=== PATIENT | male | born 1990 | race Caucasian/White ===

== ENCOUNTER 2017-04-16 10:10 | Emergency (ER) | payer OTHER, MEDICAID ==
[~2017-04-16] VITALS: Ht 182.9 cm; Wt 119.0 kg
[~2017-04-16 10:10] MED LIST: CEPH500C5 PO; CLIN-12 PO; CLIN-79 PO; GENT5DRO4 EACHEYE; HYDR-3965 PO; IBUP-1986 PO; NAPR-1154 PO; ONDA4TAB9 PO
[2017-04-16 10:12] VITALS: BP 123/72
== END 2017-04-16 10:38 | disposition home or self-care (01) ==
LOC: ER 10:10
DX: L73.9 Follicular disorder, unspecified (principal); Z86.14 Personal history of Methicillin resistant Staphylococcus aureus infection; Z98.890 Other specified postprocedural states
CPT/HCPCS: 99281

== ENCOUNTER 2017-04-22 17:02 | Emergency (ER) | payer OTHER, MEDICAID ==
[~2017-04-22] VITALS: Ht 185.4 cm; Wt 120.5 kg
[2017-04-22 17:30] VITALS: BP 138/98
== END 2017-04-22 17:31 | disposition home or self-care (01) ==
LOC: ER 17:02
DX: S61.512D Laceration without foreign body of left wrist, subsequent encounter (principal); W26.0XXD Contact with knife, subsequent encounter; Z98.890 Other specified postprocedural states; Z79.899 Other long term (current) drug therapy
CPT/HCPCS: 99281

== ENCOUNTER 2017-08-17 19:56 | Emergency (ER) | payer MEDICAID, OTHER ==
[~2017-08-17] VITALS: Ht 185.4 cm; Wt 123.0 kg
[~2017-08-17 19:56] MED LIST changes: -HYDR-3965 PO; -ONDA4TAB9 PO
[2017-08-17 20:15] VITALS: BP 137/82
[2017-08-17] MEDS ORDERED: ibuprofen tablet 400 MG TABLET PO ONE (21:25)
[2017-08-17] MEDS ORDERED: acetaminophen 325mg tablet PO ONE (21:25)
[2017-08-17] MEDS ORDERED: BUPIVAcaine/PF 2.5 mg/ml (0.25%) 30ml vial IJ ONE (21:25)
[2017-08-17] MEDS ORDERED: SULF1TAB49 PO (22:32)
== END 2017-08-17 22:48 | disposition home or self-care (01) ==
LOC: ER 19:57
DX: L02.412 Cutaneous abscess of left axilla (principal); Z86.14 Personal history of Methicillin resistant Staphylococcus aureus infection; Z98.890 Other specified postprocedural states
CPT/HCPCS: 10060; 99283; A6449; J3490

== ENCOUNTER 2017-08-18 22:21 | Emergency (ER) | payer MEDICAID ==
[~2017-08-18] VITALS: Ht 185.4 cm; Wt 124.0 kg
[~2017-08-18 22:21] MED LIST changes: +SULF1TAB49 PO
[2017-08-19] MEDS ORDERED: dexamethasone sod phosphate 10mg/ml inj IM STA (00:14)
[2017-08-19] MEDS ORDERED: ketorolac trometh inj. 60 MG/2 ML VIAL IM ONE (00:15)
[2017-08-19] MEDS ORDERED: PRED20TA PO (00:28)
[2017-08-19] MEDS ORDERED: ONDA4TAB12 PO (00:28)
[2017-08-19 01:14] VITALS: BP 111/75
== END 2017-08-19 01:20 | disposition home or self-care (01) ==
LOC: ER 22:22
DX: T36.95XA Adverse effect of unspecified systemic antibiotic, initial encounter (principal); F17.210 Nicotine dependence, cigarettes, uncomplicated; Z86.14 Personal history of Methicillin resistant Staphylococcus aureus infection; Z98.890 Other specified postprocedural states; Z88.2 Allergy status to sulfonamides; Z88.8 Allergy status to other drugs, medicaments and biological substances; Z79.899 Other long term (current) drug therapy; Y92.89 Other specified places as the place of occurrence of the external cause
CPT/HCPCS: 96372; 99284; J1100; J1885

== ENCOUNTER 2017-12-09 17:10 | Emergency (ER) | payer MEDICAID ==
[~2017-12-09] VITALS: Ht 177.8 cm; Wt 118.2 kg
[~2017-12-09 17:10] MED LIST changes: -CLIN-79 PO; +CLIN150C8 PO; +ONDA4TAB12 PO; -SULF1TAB49 PO
[2017-12-09 17:20] VITALS: BP 150/94
== END 2017-12-09 17:34 | disposition home or self-care (01) ==
LOC: ER 17:11
DX: A63.8 Other specified predominantly sexually transmitted diseases (principal); Z86.14 Personal history of Methicillin resistant Staphylococcus aureus infection; Z98.890 Other specified postprocedural states; Z88.1 Allergy status to other antibiotic agents; Z88.8 Allergy status to other drugs, medicaments and biological substances
CPT/HCPCS: 99281

== ENCOUNTER 2018-01-26 18:56 | Emergency (ER) | payer MEDICAID ==
[~2018-01-26] VITALS: Ht 188 cm; Wt 114.0 kg
[2018-01-26 19:02] VITALS: BP 127/79
[2018-01-26] MEDS ORDERED: ONDA8TAB6 PO (19:40)
[2018-01-26] MEDS ORDERED: ondansetron 4mg rapidly disintigrating tab PO ONE (19:40)
== END 2018-01-26 19:53 | disposition home or self-care (01) ==
LOC: ER 18:57
DX: R11.2 Nausea with vomiting, unspecified (principal); R19.7 Diarrhea, unspecified; R50.9 Fever, unspecified; F17.200 Nicotine dependence, unspecified, uncomplicated; Z88.2 Allergy status to sulfonamides
CPT/HCPCS: 99283

== ENCOUNTER 2019-07-22 16:19 | Emergency (ER) | payer MEDICAID, OTHER ==
[~2019-07-22] VITALS: Ht 182.9 cm; Wt 132.3 kg
[~2019-07-22 16:19] MED LIST changes: -CEPH500C5 PO; +ONDA8TAB6 PO
[2019-07-22] MEDS ORDERED: ketorolac trometh. 30mg/ml inj. IM ONE (16:45)
[2019-07-22 16:59] VITALS: BP 127/84
[2019-07-22 17:09] LABS: BASOPHILS # (AUTO) 0.1 X10'3 (0-0.2); BASOPHILS % (AUTO) 0.5 % (0-1); EOSINOPHILS # (AUTO) 0.4 X10'3 (0-0.9); EOSINOPHILS % (AUTO) 4.3 % (0-6); HEMATOCRIT 44.3 % (42.0-52.0); HEMOGLOBIN 15.2 g/dl (14.0-17.9); LYMPHOCYTES # (AUTO) 2.5 X10'3 (1.1-4.8); LYMPHOCYTES % (AUTO) 25.3 % (21-51); MEAN CORPUSCULAR HEMOGLOBIN 28.6 PG (27.0-31.0); MEAN CORPUSCULAR HGB CONC 34.3 g/dL (33.0-36.5); MEAN CORPUSCULAR VOLUME 83.4 FL (78-98); MEAN PLATELET VOLUME 8.2 FL (7.4-10.4); MONOCYTES # (AUTO) 0.6 X10'3 (0-0.9); MONOCYTES % (AUTO) 6.1 % (2-12); NEUTROPHILS # (AUTO) 6.2 X10'3 (1.8-7.7); NEUTROPHILS % (AUTO) 63.8 % (42-75); PLATELET COUNT 242 X10'3 (140-440); RED BLOOD COUNT 5.31 X10'6 (4.70-6.10); RED CELL DISTRIBUTION WIDTH 13.2 % (11.5-14.5); WHITE BLOOD COUNT 9.8 X10'3 (4.5-11.0)
[2019-07-22 17:22] LABS: ALANINE AMINOTRANSFERASE 46 U/L (12-78); ALBUMIN 3.9 G/DL (3.4-5.0); ALBUMIN/GLOBULIN RATIO 1.2 (1.1-1.5); ALKALINE PHOSPHATASE 65 IU/L (46-116); ANION GAP 7 (8-16); ASPARTATE AMINO TRANSFERASE 19 U/L (10-37); BILIRUBIN,TOTAL 0.2 MG/DL (0.1-1.0); BLOOD UREA NITROGEN 14 MG/DL (7-18); BUN/CREATININE RATIO 12.8 (5.4-32.0); CHLORIDE 106 MMOL/L (99-107); CREATININE 1.09 MG/DL (0.60-1.10); GLUCOSE 93 MG/DL (70-104); POTASSIUM 3.7 MMOL/L (3.5-5.1); SODIUM 139 MMOL/L (135-145); TOTAL CARBON DIOXIDE 25.6 MMOL/L (24-32); TOTAL PROTEIN 7.2 G/DL (6.4-8.2); eGFR 81 ML/MIN
[2019-07-22] MEDS ORDERED: HYDR-3965 PO (17:39)
== END 2019-07-22 17:53 | disposition home or self-care (01) ==
LOC: ER 16:20
DX: R07.89 Other chest pain (principal); Z86.14 Personal history of Methicillin resistant Staphylococcus aureus infection; Z98.890 Other specified postprocedural states; Z88.1 Allergy status to other antibiotic agents; Z88.8 Allergy status to other drugs, medicaments and biological substances
CPT/HCPCS: 36415; 71045; 80053; 84484; 85025; 93005; 96372; 99285; J1885

== ENCOUNTER 2025-03-17 14:08 | Emergency (ER) | payer MEDICAID, OTHER ==
[~2025-03-17] VITALS: Ht 185.4 cm; Wt 116.6 kg
[~2025-03-17 14:08] MED LIST changes: +CLIN-214 PO; -CLIN150C8 PO; +GEN0.3OS EACHEYE; -GENT5DRO4 EACHEYE; +ONDA-243 PO; -ONDA4TAB12 PO
[2025-03-17 14:19] VITALS: BP 158/111; PULSE 72; TEMP 97.8; O2SAT 97
--- NOTE | 2025-03-17 14:40 | Physician Documentation ---
History of Present Illness ~ Chief Complaint: Hip pain Stated Complaint: HIP PAIN Time Seen by MD: 14:31 Primary Medical Doctor: [facility] Source: patient Mode of Arrival: Wheelchair Exam Limitations: no limitations HPI 34-year-old male with complaints of acute on chronic left hip pain worsening ove r the past couple of days as he has been helping his family out during the holidays even gather would. Patient has history of right knee pain with previous surgeries. Patient states that due to his right knee being chronically in pain that his left hip is also in pain. Patient denies any trauma but states gradual but also 10/10 pain today due to the increased activity. Patient also states that he has 3 days sober visiting with his son but unable to ambulate due to the hip pain. Medication Reconciliation Allergies: Coded Allergies: sulfamethoxazole (Verified Allergy, Unknown, FLUSH ALL OVER, 03/17/25) trimethoprim (Verified Allergy, Unknown, FLUSH ALL OVER, 03/17/25) Scheduled Clindamycin HCl (Clindamycin HCl CAPSULE), 3 CAP PO TID Clindamycin Hcl (Clindamycin Hcl), 3 CAP PO TID Gentamicin Sulfate (Gentak), 2 DROP EACHEYE TID Ibuprofen (Ibuprofen), 1 TABLET PO TID Scheduled PRN Naproxen (Naprosyn), 1 TABLET PO BID PRN for pain ONDANSETRON ODT 4mg tablet (Ondansetron Odt), 1 TABLET PO Q6H PRN for nausea/vomiting Ondansetron Hcl (Zofran), 8 MG PO Q8HPRN PRN for nausea/vomiting Past Medical History Past Medical History: *MUSCULOSKELETAL*, Chronic Pain, MRSA Abscess, Depression Past Surgical History: orthopedic surgeries Alcohol Use: Heavy Drug Use: none Lives In: Home Occupation: employed Review of Systems All Other Systems at this time: Reviewed and Negative Musculoskeletal: Reports: see HPI Physical Exam Vital Signs: RN Vital Signs have been reviewed: Yes, Temperature: 97.8, Source: Oral, Heart Rate: 72, Respiratory Rate: 16, BP: 158/111, Pulse Oximetry: 97, Weight: 116.600 Oxygen Flow Rate: 0 Physical Exam General: Alert, no apparent distress. HEENT: moist mucous membranes. Neck: Full range of motion. Respiratory: No respiratory distress speaking in full sentences Chest: No accessory muscle use. Cardiovascular: Appears well perfused Extremities: Able to stand and bear weight movement of all 4 extremities Neurologic: Oriented x4. Psychiatric: Normal mood and affect. Skin: Normal color, warm and dry. No edema, no ecchymosis. Progress Results/Orders Results/Orders Orders - MAGALYS BURKS NP Hip Unilateral 2-3 Views (03/17/25 14:36) Completed Orders - MAGALYS BURKS NP Hip Unilateral 2-3 Views (03/17/25 14:36) Ketorolac Trometh 30mg/Ml Vial (Toradol (03/17/25 14:40) Medications Received in ER Medications (Trade) Dose Ordered Sig/Pancho Route PRN Reason Start Time Stop Time Status Last Admin Dose Admin (Toradol inj. 30mg/ml) 30 mg ONCE ONCE IM 03/17/25 14:40 03/17/25 14:41 DC 03/17/25 14:59 30 MG Vital Signs 03/17/25 03/17/25 14:19 14:59 Temp 97.8 Pulse 72 Resp 16 17 B/P (MAP) 158/111 Pulse Ox 97 O2 Flow Rate 0 EKG/XRAY/CT/US/VASC/MRI Bone/Soft Tissue X-Ray (Ext.) : Additional Comment Patient: MANJIT HINES Medical Record: [id number] [facility] : 1990, Age: 34 Sex: Male Location: ER Patient Status: REG ER Service Date/Time: 03/17/251435 Ordering Physician: MAGALYS BURKS NP Exam: HIP UNILATERAL 2-3 VIEWS CLINICAL INDICATION: Chronic pain worsened over the past couple of days TECHNIQUE: 4 radiographic views of the left hip were obtained. Comparison: None FINDINGS/IMPRESSION: There is no evidence of acute fracture or dislocation. The visualized joint space is well maintained. The alignment is anatomical. There is no radiopaque foreign body. Medical Decision Making Additional information obtaine: N/A Findings Patient's pain is due to overuse and not trauma. We will get an x-ray to evaluate for any osseous abnormality with patient aware to follow up with the range urea. Toradol shot for pain relief. Differential Dx:Considerations: Include: Arthritis, Bursitis, DJD, Sprain Departure Time of Disposition: 15:29 Disposition: 01 HOME / SELF CARE / HOMELESS Impression: Primary Impression: Hip pain Condition: Stable Discharge Instructions: Arthritis, Nonspecific Additional Instructions: X-ray was negative for any acute or significant findings. This does not mean that there could not be arthritic changes and this should be evaluated by your primary at the [facility] for potential longer-term relief or treatment options including potentially steroid shots as well as physical therapy. Take Tylenol and ibuprofen for [id number] pain. CLINICAL INDICATION: Chronic pain worsened over the past couple of days TECHNIQUE: 4 radiographic views of the left hip were obtained. Comparison: None FINDINGS/IMPRESSION: There is no evidence of acute fracture or dislocation. The visualized joint space is well maintained. The alignment is anatomical. There is no radiopaque foreign body. Referrals: NO PRIMARY CARE PROVIDER (PCP) Prescriptions Ibuprofen (Ibuprofen) 800 Mg Tablet 1 TAB PO Q8H for pain for 10 Days, #30 TAB 0 Refills Prov: MAGALYS BURKS NP 03/17/25 Education Educated: Patient Educated regarding: diagnosis, treatment, need for follow up Signature Scribe Signature: No scribe Attestation: The note accurately reflects work and decisions made by me.Magalys Burks - CHRISTIE 03/17/25 14:39 MAGALYS BURSK NP Mar 17, 2025 14:40
[2025-03-17 14:59] VITALS: RESP 17
[2025-03-17] MEDS: ketorolac trometh 30MG/ML vial 30 MG/ML VIAL IM ONE (14:59)
--- NOTE | 2025-03-17 15:23 | RADIOLOGY REPORT ---
CLINICAL INDICATION: Chronic pain worsened over the past couple of days TECHNIQUE: 4 radiographic views of the left hip were obtained. Comparison: None FINDINGS/IMPRESSION: There is no evidence of acute fracture or dislocation. The visualized joint space is well maintained. The alignment is anatomical. There is no radiopaque foreign body.
[2025-03-17] MEDS ORDERED: IBUP-1986 PO (15:30)
== END 2025-03-17 15:43 | disposition home or self-care (01) ==
LOC: ER 14:09
DX: M25.552 Pain in left hip (principal); F32.A Depression, unspecified; Z88.1 Allergy status to other antibiotic agents; Z88.2 Allergy status to sulfonamides
CPT/HCPCS: 73502; 96372; 99283; J1885